=== PATIENT | female | born 1960 | race Hispanic/Latino ===

== ENCOUNTER 2019-09-30 09:34 | Outpatient (CLI) | payer OTHER ==
[2019-09-30] MEDS ORDERED: ALBUTEROL 2.5 MG/3 ML NEBU IH ONE (10:27)
== END 2019-09-30 09:35 | disposition home or self-care (01) ==
LOC: PF 09:34
PROVIDERS: ATTEND Internal Medicine
DX: Z02.71 Encounter for disability determination (principal); J43.9 Emphysema, unspecified
CPT/HCPCS: 94060; 94640; 94729